=== PATIENT | male | born 1935 | race African-American/Black ===

== ENCOUNTER 2019-08-13 22:08 | Emergency (ER) | payer MEDICARE, OTHER ==
[~2019-08-13] VITALS: Ht 177.8 cm; Wt 78.0 kg
[2019-08-13] MEDS ORDERED: VECURONIUM BROMIDE 10 MG/VIAL IV ONE ×2 (22:09→22:45)
[2019-08-13] MEDS ORDERED: SODIUM CHLORIDE 0.9% 10ML VIAL ONE (22:09)
[2019-08-13] MEDS ORDERED: ETOMIDATE 2MG/ML 10ML VIAL IV ONE ×2 (22:09→22:45)
[2019-08-13] MEDS ORDERED: ATROPINE SULFATE 1MG/10ML SYR ONE (22:09)
[2019-08-13 22:10] VITALS: BP_SYST 154
[2019-08-13] MEDS ORDERED: PROPOFOL 10MG/ML 100ML 100 ML IV ONE (22:45)
[2019-08-13] MEDS ORDERED: SODIUM CHLORIDE 0.9% 1000ML BAG (SEPSIS BOLUS) IV ONE (22:45)
[2019-08-13] MEDS ORDERED: HYDROCORTISONE SOD SUCCINATE 100 MG/2 ML VIAL IV ONE (22:45)
[2019-08-13] MEDS ORDERED: VANCOMYCIN 1 G PREMIX 200 ML IV ONE (22:45)
[2019-08-13] MEDS ORDERED: PIPERACILLIN/TAZ 3.375G PREMIX 50 ML IV ONE (22:45)
[2019-08-13 22:49] LABS: HEMATOCRIT. 31.2 % (42.0-52.0); HEMOGLOBIN. 10.4 g/dL (14.0-18.0); MEAN CORPUSCULAR HEMOGLOBIN 31.6 pg (28.0-32.0); MEAN CORPUSCULAR VOLUME 95.2 fL (80.0-94.0); MEAN PLATELET VOLUME 9.8 fl (7.4-10.4); PLATELET 56 x1000/uL (130-400); RED BLOOD CELL COUNT 3.28 mill/uL (4.7-6.1); RED CELL DISTRIBUTION WIDTH 14.6 % (11.6-14.6)
[2019-08-13 22:56] LABS: CHLORIDE 112 mEq/L (98-107); INR 1.2; PROTHROMBIN TIME 13.1 sec (9.6-11.0)
[2019-08-13 22:59] LABS: ETHANOL BLOOD < 10 mg/dL
[2019-08-13] MEDS ORDERED: NOREPINEPHRINE 4 MG in DEXT 5% WATER 246 ML IV ONE (23:00)
[2019-08-13 23:04] LABS: CREATINE KINASE 85 IU/L (39-308)
[2019-08-13 23:06] LABS: CREATINE KINASE MB FRACTION <0.5 ng/mL ng/mL (0.5-3.6)
[2019-08-13] MEDS ORDERED: NOREPINEPHRINE 4MG/250ML PMX 250 ML IV ONE (23:15)
[2019-08-13] MEDS ORDERED: NOREPINEPHRINE 4MG/250ML PMX 250 ML IV SCH (23:15)
[2019-08-13] MEDS ORDERED: EPINEPHRINE 0.1MG/ML (1:10,000) 10ML SYR ONE (23:21)
[2019-08-14 03:47] LABS: PLATELET ESTIMATE SLIGHTLY DECREASED
== END 2019-08-13 23:02 | disposition expired ==
LOC: ER 22:08 → CANBEDREQ 08-14 15:59
DX: A41.9 Sepsis, unspecified organism (principal); G93.40 Encephalopathy, unspecified; J96.90 Respiratory failure, unspecified, unspecified whether with hypoxia or hypercapnia; I46.9 Cardiac arrest, cause unspecified; E11.9 Type 2 diabetes mellitus without complications; I10 Essential (primary) hypertension
CPT/HCPCS: 31500; 36415; 36556; 80053; 80320; 82550; 82553; 83605; 83690; 84145; 84443; 84484; 85025; 85610; 87040; 87077; 93005; 94002; 94660; 96361; 96374; 96375; 99291; J0461; J2543; J2704; J3370; J3490; J7030; J7060; G0480